=== PATIENT | male | born 2000 | race Caucasian/White ===

== ENCOUNTER 2022-11-13 21:40 | Emergency (ER) | payer OTHER ==
[~2022-11-13] VITALS: Ht 190.5 cm; Wt 95.1 kg
[2022-11-13] MEDS ORDERED: predniSONE 20 MG TAB PO ONE (23:10)
[2022-11-13] MEDS ORDERED: BENZONATATE 100MG CAPSULE PO ONE (23:10)
[2022-11-13] MEDS ORDERED: BENZ200C70 PO (23:12)
[2022-11-13] MEDS ORDERED: PRED20TA PO (23:12)
[2022-11-13 23:27] VITALS: BP 131/70; TEMP 97.1; O2SAT 96
== END 2022-11-13 23:32 | disposition home or self-care (01) ==
LOC: M ED 21:40
DX: J06.9 Acute upper respiratory infection, unspecified (principal); B34.9 Viral infection, unspecified; Z91.018 Allergy to other foods
CPT/HCPCS: 71046; 87486; 87581; 87633; 87798; 99283; J7512